=== PATIENT | female | born 1990 | race Two or more races ===

== ENCOUNTER 2021-07-25 10:34 | Emergency (ER) | payer MEDICAID ==
[~2021-07-25] VITALS: Ht 165.1 cm; Wt 77.2 kg
[2021-07-25] MEDS ORDERED: BACITRACIN TOPICAL OINT PACKET. TP ONE (11:15)
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
[2021-07-25] MEDS ORDERED: DIPHTH,PERTUSS(ACELL),TET TOX 0.5 ML DISP.SYRIN. VAX IM ONE (11:45)
[2021-07-25 13:03] VITALS: BP 106/59
== END 2021-07-25 13:13 | disposition home or self-care (01) ==
LOC: ER 10:34
DX: S50.812A Abrasion of left forearm, initial encounter (principal); Y28.8XXA Contact with other sharp object, undetermined intent, initial encounter; Y93.89 Activity, other specified; Y92.89 Other specified places as the place of occurrence of the external cause; Y99.8 Other external cause status
CPT/HCPCS: 90471; 90715; 99283